=== PATIENT | female | born 1960 | race African-American/Black ===

== ENCOUNTER 2018-03-15 21:08 | Observation (INO) | payer OTHER, SELFPAY ==
[2018-03-15 21:42] LABS: #Basophils 0.1 thou/uL (0.0-0.2); #Eosinphils 0.1 thou/uL (0.0-0.7); #Lymphocytes 3.2 thou/uL (1.20-3.40); #Monocytes 0.6 thou/uL (0.11-0.59); #Neutrophils 4.4 thou/uL (1.40-6.50); %Basophils 1.1 % (0.0-1.0); %Eosinophils 0.8 % (0.0-10.0); %Lymphocytes 38.6 % (21.0-51.0); %Monocytes 6.6 % (0.0-10.0); Hemoglobin 15.5 g/dL (12.0-16.0); Mean Corpuscular HGB CONC 33.9 g/dL (32.0-36.0); Mean Corpuscular Hemoglobin 29.8 pg (27.0-31.0); Mean Corpuscular Volume 87.9 fL (78.0-98.0); Mean Platelet Volume 7.3 fL (7.4-10.4); Platelet Count 299 thou/uL (130-400); RBC Distribution Width 12.6 % (11.5-14.5); Red Blood Cell (RBC) Count 5.19 mill/uL (4.20-5.40); White Blood Cell (WBC) Count 8.4 thou/uL (4.8-10.8)
--- NOTE | 2018-03-15 21:59 | RAD ---
CHEST TWO VIEWS: 03/15/18 COMPARISON: 11/22/05. HISTORY: Pain. FINDINGS: Normal cardiac silhouette. Pulmonary vessels and pulmonary hilum are normal. Costophrenic angles are clear. No consolidation or mass. No pneumothorax or osseous abnormalities. Atherosclerosis of the aor ta is noted. IMPRESSION: 1. No acute cardiopulmonary process. 2. Atherosclerosis. POS: [facility]
[2018-03-15 22:00] LABS: ALT (SGPT) 24 U/L (8-55); AST (SGOT) 18 U/L (5-34); Albumin 4.3 g/dL (3.5-5.0); Alkaline Phosphatase 93 U/L (40-150); Anion Gap 14 mmol/L (10-20); BUN (Urea Nitrogen) 11 mg/dL (9.8-20.1); Bilirubin, Total 0.2 mg/dL (0.2-1.2); CK (CPK) 109 U/L (29-168); Calc. Creatinine Clearance 0 mL/min (70-130); Calcium 9.4 mg/dL (7.8-10.44); Carbon Dioxide 21 mmol/L (22-29); Chloride 105 mmol/L (98-107); Estimated GFR-MDRD 76; Globulin 3.3 g/dL (2.4-3.5); Glucose 138 mg/dL (70-105); Protein, Total 7.6 g/dL (6.0-8.3); Sodium 137 mmol/L (136-145)
[2018-03-15 22:05] LABS: CKMB 1.3 ng/mL (0-6.6); Troponin I Less than 0.010 ng/mL (< 0.028)
[2018-03-15] MEDS ORDERED: diphenhydrAMINE 50 MG/ML VIAL ONE (22:40)
[2018-03-15] MEDS ORDERED: Nitroglycerin 0.4 MG TAB (25 Tab Bottle) ONE (22:40)
[2018-03-15] MEDS ORDERED: Acetaminophen 500 MG TAB ONE (22:40)
[2018-03-15] MEDS ORDERED: Metoclopramide HCl 10 MG/2 ML VIAL ONE (22:40)
--- NOTE | 2018-03-15 23:37 | CT ---
NONCONTRAST HEAD CT 03/15/18 HISTORY: Pain. COMPARISON: 11/22/05. FINDINGS: No parenchymal hemorrhage. No extra-axial hematoma. No midline shift. Basilar cisterns are patent. Br ain volume, age appropriate. Cortical salazar-white matter differentiation is preserved. Ventricles and sulci are patent and symmetric. Stable hypodensity in the right weems radiata. Calvarium is intact. No significant opacification of the mastoid air cells or sinuses. There does appear to be partial opa cification of both external auditory canals, presumed to be due to cerumen. Direct visualization is r ecommended. IMPRESSION: 1. No acute intracranial process. 2. Cerumen in both external auditory canals. Direct visualization is recommended. POS: [facility]
[2018-03-16 01:05] LABS: Color Of CSF Supernatant COLORLESS (Colorless); Tube # 1; Unspun CSF Color COLORLESS (Colorless)
[2018-03-16 01:18] LABS: CSF, Glucose 86 mg/dl (40-70); CSF, Protein 32 mg/dL (15-40)
[2018-03-16 01:19] LABS: CSF Source CSF; Clarity Clear (Clear); RBC Count - Manual 0 /cumm (None Seen); Tube # 4
[2018-03-16 01:20] LABS: CSF Source CSF; Clarity Clear (Clear); RBC Count - Manual 0 /cumm (None Seen); Tube # 2; WBC/NonHematics Count - Manual 1 /cumm (0-5)
[2018-03-16] MEDS ORDERED: methylPREDNISolone Sod Succ/PF 125 MG/2 ML VIAL ONE (01:24)
[2018-03-16] MEDS ORDERED: Water For Inject, Bacteriostat 30 ML ONE (01:25)
[2018-03-16] MEDS ORDERED: Magnesium Sulfate 2 GM in Sodium Chloride 0.9% 100 ML IVPB SCH (01:45)
[2018-03-16 04:09] VITALS: BMI 32.3
[2018-03-16] MEDS ORDERED: Acetaminophen 325 MG TAB PO PRN (08:27)
[2018-03-16] MEDS ORDERED: Ondansetron HCl/PF 4 MG/2 ML Vial IVP PRN (08:27)
[2018-03-16] MEDS ORDERED: Ondansetron ODT 4 MG TAB SL PRN (08:27)
--- NOTE | 2018-03-16 09:06 | CT ---
PRELIMINARY REPORT/[facility]/EMERGENTY AFTER-HOURS PROCEDURE CT Angiography Head With Intravenous Contrast CT Angiography Neck With Intravenous Contrast EXAM DATE/TIME: 03/16/2018 1:02 AM CLINICAL HISTORY: 57 years old, female; Signs and symptoms; Headache; Patient HX: , F57 presents to ed C/O constant cp and BOURGEOIS that onset suddenly this evening at around 5/6pm. Pt states she was stressed about a family ma tter when her SX onset. No HX of heart disease. Pain is exacerbated by walking, palpation. Pt reports: Cough, chills, and SOB. Denies: Abd pain, n/v/d. Pt reports she is a smoker. P mhx of a stroke, represented with similar SX to what she is experiencing today. Stroke deficits inclu de l. Sided weakness. Pt states she takes a baby aspirin. TECHNIQUE: Axial computed tomographic angiography images of the head and neck with intravenous contrast using CT angiography protocol. MIP reconstructed images were created and reviewed. COMPARISON: No relevant prior studies available. FINDINGS: HEAD: Right anterior cerebral artery: Unremarkable. No occlusion or significant stenosis. No aneurysm. Right middle cerebral artery: Unremarkable. No occlusion or significant stenosis. No aneurysm. Right posterior cerebral artery: origin. No occlusion or significant stenosis. No aneurysm. Left anterior cerebral artery: Unremarkable. No occlusion or significant stenosis. No aneurysm. Left middle cerebral artery: Unremarkable. No occlusion or significant stenosis. No aneurysm. Left posterior cerebral artery: origin. No occlusion or significant stenosis. No aneurysm. Basilar artery: Congenitally hypoplastic. No occlusion or significant stenosis. No aneurysm. NECK: Right common carotid artery: Unremarkable. No significant stenosis. No dissection or occlusion. Right internal carotid artery: Unremarkable. No significant stenosis. No dissection or occlusion. Right external carotid artery: Unremarkable. No occlusion. Right vertebral artery: Unremarkable. No significant stenosis. No dissection or occlusion. Left common carotid artery: Unremarkable. No significant stenosis. No dissection or occlusion. Left internal carotid artery: Unremarkable. No significant stenosis. No dissection or occlusion. Left external carotid artery: Unremarkable. No occlusion. Left vertebral artery: Unremarkable. No significant stenosis. No dissection or occlusion. HEAD and NECK: Bones/joints: No acute fracture. No dislocation. Soft tissues: Unremarkable as visualized. No mass. Other findings: Enlarged thyroid gland, heterogeneous in appearance consistent with goiter. Moderate bilateral centrilobular emphysematous changes are present. CAROTID STENOSIS REFERENCE USING NASCET CRITERIA: % ICA stenosis = (1 - narrowest ICA diameter/diameter of distal cervical ICA) x 100. Mild - <50% stenosis. Moderate - 50-69% stenosis. Severe - 70-94% stenosis. Near occlusion - 95-99% stenosis. Occluded - 100% stenosis. IMPRESSION: No acute findings. Enlarged thyroid gland, heterogeneous in appearance consistent with goiter. Thank you for allowing us to participate in the care of your patient. Dictated and Authenticated by: Dee Bernard MD 03/16/2018 2:33 AM Central Time ([place] & [place]) FINAL REPORT CT ANGIOGRAM HEAD WITH CONTRAST CT ANGIOGRAM NECK WITH CONTRAST: HISTORY: Headache. Past history of a stroke. TECHNIQUE: A CT angiogram of the head and neck were performed after the intravenous administration of contrast. Three-rendering is provided. FINDINGS: There is moderate-grade stenosis of the right M1 branch with collateralization to the sylvian branche s. This is not reported in the preliminary report. The vertebral arteries are attenuated. The basilar artery is small. The posterior circulation does not appear to have a direct communication with the posterior cerebral arteries which are fed by the a nterior circulation. There is moderate emphysematous change of the lung apices. Numerous hypodensities of the thyroid are present. IMPRESSION: 1. Moderate-grade stenosis right M1 segment which may be chronic due to collateralization of the kyree vian fissure branches. There is mild diminution of the right M3 branches. 2. Small bilateral vertebral arteries with a lack of communication of the very small basilar artery with the posterior circulation. The posterior communicating arteries are fed by the anterior circula tion. 3. Multiple hypodensities of the thyroid for which ultrasound is recommended. Gisselle, a nurse taking care of the patient, was notified of the findings 8:24 a.m. CODE CR POS: [facility]
[2018-03-16] MEDS ORDERED: Dextrose 5% in Water 1,000 ML IV PRN (09:33)
[2018-03-16] MEDS ORDERED: Dextrose 50% Abboject 50 ML SYRINGE IVP PRN (09:33)
[2018-03-16] MEDS ORDERED: HumaLOG 300 UNITS/3 ML VIAL SC PRN ×2 (09:33)
[2018-03-16] MEDS: Potassium Chloride 20 MEQ TAB PO SCH ×3 (10:41→19:01)
[2018-03-16 11:13] LABS: Troponin I Less than 0.010 ng/mL (< 0.028)
[2018-03-16] MEDS ORDERED: Metoprolol Tartrate 25 MG TAB PO SCH (11:15)
[2018-03-16] MEDS ORDERED: ISOVUE-370 76%-LOCM 1 ML ONE (14:58)
[2018-03-16] MEDS: Acetaminophen 325 MG TAB PO PRN (16:24)
[2018-03-16] MEDS ORDERED: Diabetic Tussin 200 MG/10 ML UDCUP PO PRN (18:13)
[2018-03-16] MEDS ORDERED: Lisinopril 20 MG TAB PO SCH (18:15)
[2018-03-16] MEDS: Metoprolol Tartrate 25 MG TAB PO SCH (20:22)
--- NOTE | 2018-03-16 21:32 | ULT ---
THYROID ULTRASOUND: 03/16/18 HISTORY: Thyromegaly. COMPARISON: None. TECHNIQUE: Sagittal and transverse imaging of the thyroid gland is performed. FINDINGS: There is heterogeneity throughout the thyroid gland. Thyroid isthmus measures 0.7 cm. Right thyroid l obe measures 5.3 x 2.9 x 2.8 cm. Left thyroid lobe measures 2.1 x 1.9 x 5.1 cm. There are multiple complex cystic lesions as well as simple cystic lesions. The largest cystic lesion is in the lower pole of the right thyroid lobe measuring 1.1 x 1.6 x 1.3 cm. There is a solid lesion in the mid pole of the right thyroid lobe measuring 1.1 x 1.2 x 0.7 cm. There is a complex cystic le enzo in the upper pole of the right thyroid lobe measuring 1.1 x 1.1 x 0.9 cm. IMPRESSION: Complex solid and cystic lesions in the thyroid gland as well as a solid nodule in the right thyroid lobe. TI-RADS calculator score of TR3. Followup imaging in one year is recommended. POS: [facility]
--- NOTE | 2018-03-17 03:04 | CON ---
DATE OF CONSULTATION: 03/16/2018 REFERRING PROVIDER: Darrian Bruce M.D. REASON FOR CONSULTATION: Headache. HISTORY OF PRESENT ILLNESS: Mr. Balderas is a pleasant 57-year-old -[place] female who has be en consulted for evaluation of headache. The patient reports that she was stressed about a family ma tter prior to her symptom onset on yesterday, she suddenly started having headache that was holocrani ally, and this was sharp in quality and 9/10 in intensity. She continued to have headache throughout the day in the evening, then she started having chest pain, which prompted her to present to the [facility]. She reports that she has been having headache over the past 1 month on a janes ly basis. This headaches are also located her holocranially and they are throbbing in quality and mo derate in intensity. She states that with headache last night she was having some unusual sensation in the left side of her face as well as some weakness in her left lower extremity. She also complain ed of having blurred vision with dark floaters in both eyes as well as tinnitus in the right ear. Vicky carcamo notes that after she was given medications in the ER, headache has been much better today. She den ies any headache at this time. She denies nausea, vomiting, abdominal pain, fever, or chills. PAST MEDICAL HISTORY: Significant for hypertension, diabetes, history of stroke, hyperlipidemia. PAST SURGICAL HISTORY: Not significant. SOCIAL HISTORY: She drinks alcohol on social occasions. She also smokes cigarettes on a daily basis about 1 pack per day. She denies illicit drug use. CURRENT MEDICATIONS: Please review MAR. ALLERGIES: No known drug allergies. REVIEW OF SYSTEMS: As mentioned above in the HPI, otherwise negative. PHYSICAL EXAMINATION: VITAL SIGNS: Blood pressure of 182/71, pulse of 69, temperature of 98.4, respirations of 20, O2 sats ____ on room air. GENERAL: Well-developed, well-nourished -[place] female, in no apparent distress. RESPIRATORY: Clear to auscultation bilaterally. CARDIOVASCULAR: Regular rate and rhythm. NEUROLOGIC: Mental status: The patient is awake, alert, oriented x3. Speech and language: Fluent speech. Cranial nerves: Pupils are 3 mm and reactive. Visual moreno are intact. External muscles are intact. No nystagmus is noted. Face is symmetric. Tongue and uvula are midline. Motor exam sh owed normal tone and bulk with a 5/5 strength in both upper and lower extremities. Sensory: Sensati on is intact and symmetric. Deep tendon reflexes 2+ reflexes in both upper and lower extremities. B abinski: Plantar responses flexion bilaterally. Coordination intact to [id number] and finge r tapping bilaterally. LABORATORY DATA: Reviewed, which included CBC, CMP and CSF studies, which is significant for potassi um of 3.0, glucose of 286. CSF WBC of 1, RBC of 0, glucose of 86 and protein of 32. Gram stain and cultures are negative. IMAGING STUDIES: CT head without contrast was reviewed, which showed no acute intracranial abnormali ty. CT angiogram of the head and neck were reviewed, which showed no acute intracranial vascular abn ormality and no extracranial vascular abnormality. IMPRESSION: 1. Malignant hypertension. 2. Intractable headache, likely due to malignant hypertension. Mr. Balderas is a pleasant 57-year-old -[place] female who presented with acute onset of heada samra. Based on the ____ headache, this is likely a tension headache. This could also be secondary to malignant hypertension as her blood pressure was noted to be significantly elevated. At this time, I would recommend treating headache with the Tylenol or tramadol as needed. I would recommend contro lling her blood pressure with a goal of 120-140/80. No further neurological workup needed from [facility]. Thank you for consultation.
[2018-03-17] MEDS: Acetaminophen 325 MG TAB PO PRN (04:24)
[2018-03-17 04:52] LABS: Anion Gap 10 mmol/L (10-20); BUN (Urea Nitrogen) 9 mg/dL (9.8-20.1); Calc. Creatinine Clearance 96 mL/min (70-130); Calcium 9.5 mg/dL (7.8-10.44); Carbon Dioxide 26 mmol/L (22-29); Chloride 107 mmol/L (98-107); Estimated GFR-MDRD 85; Glucose 128 mg/dL (70-105); Potassium 4.1 mmol/L (3.5-5.1); Sodium 139 mmol/L (136-145)
[2018-03-17 04:55] LABS: Hemoglobin A1c 6.6 % (4.0-6.0)
[2018-03-17 07:56] VITALS: TEMP 98
--- NOTE | 2018-03-17 08:05 | HP ---
DATE OF ADMISSION: 03/16/2018 CHIEF COMPLAINT: Chest pain and headache. HISTORY OF PRESENT ILLNESS: Ms. Balderas is a 57-year-old female with past medical history of diabetes, hypertension, noncompliant with medication, came because of pain in the chest, it is sharp in nature, not associated with diaphoresis, and no shortness of breath. No nausea, vomiting. She also has headache, which got worse. She has history of migraine headaches. The patient has come to the hospital because of chest pain and headache, feels like she is having a stroke. In the ER, the patient was evaluated and found to have elevated blood pressure, and enlarged thyroid on the CT. The patient is being admitted for further management for her headache and also rule out UT. PAST MEDICAL HISTORY: 1. Hypertension. 2. Diabetes mellitus. 3. Hyperlipidemia. Patient is not taking any medications right now. She has been off meds for a few months. SURGICAL HISTORY: Nothing significant. CURRENT MEDICATIONS: None. ALLERGIES: No known drug allergies. FAMILY HISTORY: Nothing of interest. SOCIAL HISTORY: Patient smokes 1 pack a day, has been smoking for many years. No history of alcohol intake. REVIEW OF SYSTEMS: Unremarkable except for sharp pain in the chest and headache. PHYSICAL EXAMINATION: GENERAL: The patient is alert, awake, oriented x3. VITAL SIGNS: Temperature 98, pulse 56, respiration 20, blood pressure 175/80. HEENT: Head is normocephalic, atraumatic. Pupils equal and reactive. Mucose pink and moist. NECK: Supple. No JVD. LUNGS: Bilateral air entry present. No rales. No rhonchi. CARDIAC: S1, S2 regular. ABDOMEN: Soft, no distention, no tenderness. Normal bowel sounds. CHEST: Chest wall tender, sore, tender on the left side. LABORATORY AND X-RAY FINDINGS: CBC shows WBC 8.4, hemoglobin 15, hematocrit 45 , platelets 299. Metabolic panel: Sodium 137, potassium 3, chloride 105, CO2 of 21, urea nitrogen 11, creatinine 0.9, glucose 138. CK-MB 1.3. Troponin less than 0.010. Chest x-ray negative. CT scan of the brain negative. CT scan of the upper [place]. Angio showed no evidence of carotid stenosis, showed enlarged thyroid. EKG showed sinus tachycardia, no acute ST-T wave changes seen. ASSESSMENT: 1. Chest pain, atypical, rule out myocardial infarction. 2. Chest wall pain. 3. Migraine headaches. 4. Hypertension, uncontrolled. 5. Diabetes, uncontrolled, noncompliant. 6. Hypokalemia. 7. Enlarged thyroid. PLAN: 1. Vital signs q.4 hours. 2. Activity: As tolerated. 3. Allergies: NKDA. 4. Diet: Cardiac. 5. Metoprolol 25 b.i.d. 6. Accu-Chek a.c. and at bedtime, sliding scale mild, regular insulin. 7. Lisinopril 20 daily. 8. Neurologic consult. 9. KCl replacement. 10. Ultrasound of the thyroid. MTDD
[2018-03-17] MEDS ORDERED: Lisinopril 20 MG TAB PO SCH (09:00)
[2018-03-17] MEDS: Metoprolol Tartrate 25 MG TAB PO SCH (09:20)
[2018-03-17 09:21] VITALS: BP 179/109
--- NOTE | 2018-03-18 13:57 | DIS ---
ADMITTING DIAGNOSES: 1. Chest pain, atypical, rule out myocardial infarction. 2. Chest wall pain. 3. Migraine headaches. 4. Hypertension, uncontrolled. 5. Diabetes mellitus, uncontrolled. 6. Patient is noncompliant. 7. Hypokalemia. 8. Enlarged thyroid. FINAL DIAGNOSES: 1. Chest pain, atypical. No evidence of acute myocardial infarction. 2. Chest pain, improved. 3. Migraine headaches. 4. Hypertension, uncontrolled, improved. 5. Diabetes mellitus, uncontrolled. 6. Noncompliant. 7. Hypokalemia, corrected. 8. Thyroid goiter and also thyroid nodule on the right side, also complex cystic lesions in the thyr oid. BRIEF SUMMARY OF HOSPITAL COURSE: Ms. Balderas is a 57-year-old female admitted [facility] use of chest wall chest pain, and migraine headaches. The patient has atypical chest pain with sharp pain in the chest and chest wall was tender. Serial troponin I was done and serial troponin was nor mal. The patient's chest wall pain resolved with pain medication. The patient also had migraine hea daches. She was given Tylenol p.r.n. She was also found to have incidentally enlarged thyroid. Ult rasound of the thyroid was done that showed solid and cystic complex lesions present as well as a thy roid nodule on the right side. Advised 1 year followup with a thyroid ultrasound. Thyroid function was done. T4 was normal. TSH was normal. Her blood pressure was uncontrolled, but she was restarte d on her home medications and she is doing much better. Her sugar also came down. So in view of imp rovement, the patient is being discharged home. At the time of discharge, she was stable. Her vital signs were stable. Lungs clear. Heart sounds regular. Abdomen was soft, nontender. Bowel sounds present. DISCHARGE MEDICATIONS: 1. Lisinopril 20 mg daily. 2. Metoprolol 25 mg b.i.d. 3. Also she will start on metformin after 2 days 500 mg 2 daily. FOLLOWUP: The patient will come for followup in 2 weeks.
--- NOTE | 2018-03-19 11:37 | EKG ---
Test Reason : Blood Pressure : / mmHG Vent. Rate : 114 BPM Atrial Rate : 114 BPM P-R Int : 138 ms QRS Dur : 090 ms QT Int : 362 ms P-R-T Axes : 040 056 -27 degrees QTc Int : 498 ms Sinus tachycardia Abnormal ECG Confirmed by KINZA SCOTT DO ([id number]), assignment editor HEAVEN MAHARAJ ([id number]) on 03/19/2018 11:36:40 AM Referred By: Confirmed By:KINZA SCOTT DO
== END 2018-03-17 10:05 | disposition home or self-care (01) ==
LOC: ERS 21:08 → 2SE 03-16 01:01
PROVIDERS: ADMIT Internal Medicine; ATTEND Internal Medicine
DX: R07.89 Other chest pain (principal); I10 Essential (primary) hypertension; G43.909 Migraine, unspecified, not intractable, without status migrainosus; E11.9 Type 2 diabetes mellitus without complications; E87.6 Hypokalemia; E04.9 Nontoxic goiter, unspecified; E78.5 Hyperlipidemia, unspecified; F17.210 Nicotine dependence, cigarettes, uncomplicated; Z91.14 Patient's other noncompliance with medication regimen
CPT/HCPCS: 36415; 36416; 62270; 70450; 70496; 70498; 71046; 76536; 80048; 80053; 82553; 82945; 83036; 84157; 84439; 84484; 85025; 85379; 87070; 87205; 89051; 90471; 90732; 93005; 96365; 96366; 96367; 96375; G0009; G0378; J1200; J2765; J2930; J3475; J7050; Q0162

== ENCOUNTER 2019-07-22 18:57 | Observation (INO) | payer SELFPAY ==
[2019-07-22 19:56] LABS: #Basophils 0.1 thou/uL (0.0-0.2); #Eosinphils 0.1 thou/uL (0.0-0.7); #Lymphocytes 4.2 thou/uL (1.20-3.40); #Monocytes 0.6 thou/uL (0.11-0.59); #Neutrophils 6.3 thou/uL (1.40-6.50); %Basophils 0.7 % (0.0-1.0); %Eosinophils 0.7 % (0.0-10.0); %Lymphocytes 37.2 % (21.0-51.0); %Monocytes 5.3 % (0.0-10.0); %Neutrophils 56.1 % (42.0-75.0); Hemoglobin 14.4 g/dL (12.0-16.0); Mean Corpuscular HGB CONC 33.7 g/dL (32.0-36.0); Mean Corpuscular Hemoglobin 29.5 pg (27.0-31.0); Mean Corpuscular Volume 87.4 fL (78.0-98.0); Platelet Count 310 thou/uL (130-400); RBC Distribution Width 12.4 % (11.5-14.5); Red Blood Cell (RBC) Count 4.88 mill/uL (4.20-5.40); White Blood Cell (WBC) Count 11.2 thou/uL (4.8-10.8)
[2019-07-22 20:15] LABS: ALT (SGPT) 13 U/L (8-55); AST (SGOT) 15 U/L (5-34); Albumin 4.5 g/dL (3.5-5.0); Alkaline Phosphatase 113 U/L (40-110); Anion Gap 13 mmol/L (10-20); BUN (Urea Nitrogen) 9 mg/dL (9.8-20.1); Bilirubin, Total 0.2 mg/dL (0.2-1.2); Calc. Creatinine Clearance 0 mL/min (70-130); Calcium 10.2 mg/dL (7.8-10.44); Carbon Dioxide 24 mmol/L (22-29); Chloride 104 mmol/L (98-107); Estimated GFR-MDRD 70; Globulin 3.5 g/dL (2.4-3.5); Glucose 117 mg/dL (70-105); Potassium 3.2 mmol/L (3.5-5.1); Sodium 138 mmol/L (136-145)
--- NOTE | 2019-07-22 20:48 | CT ---
CT BRAIN NONCONTRAST: DATE: 07/22/2019 HISTORY: 58-year-old female with frontal headache and vertigo. COMPARISON: 03/15/2018 FINDINGS: There is no evidence of acute intra-axial or extra-axial hemorrhage. There is no midline shift or any other mass effect. There is no extra-axial fluid collection. There is no evidence of obstructive hydrocephalus. Calvarium is intact. There is a tiny old lacunar infarction in the right periventricul ar white matter just lateral to the body of the right lateral ventricle. There is no interval change overall. Frontal sinuses and sphenoid sinus are clear. IMPRESSION: 1. No acute intracranial findings. 2. Tiny old lacunar infarction right cerebral deep white matter.
[2019-07-22] MEDS ORDERED: Meclizine HCl 25 MG TAB PO PRN (22:08)
[2019-07-22] MEDS ORDERED: Senokot S 8.6-50 MG TAB PO PRN (22:08)
[2019-07-22] MEDS ORDERED: Guaifenesin DM 100-10/5 ML UDCUP PO PRN (22:08)
[2019-07-22] MEDS ORDERED: Dextrose 5% in Water 1,000 ML IV PRN (22:08)
[2019-07-22] MEDS ORDERED: Dextrose 50% Abboject 50 ML SYRINGE SLOW IVP PRN (22:08)
[2019-07-22] MEDS ORDERED: Bisacodyl 10 MG SUPP PR PRN (22:08)
[2019-07-22] MEDS ORDERED: HumaLOG 300 UNITS/3 ML VIAL SC PRN ×2 (22:08)
[2019-07-22] MEDS ORDERED: Ondansetron PF 4 MG/2 ML Vial IVP PRN (22:08)
[2019-07-22] MEDS ORDERED: Acetaminophen 325 MG TAB PO PRN (22:08)
[2019-07-22] MEDS ORDERED: Aspirin Chewable 81 MG TAB ONE (22:12)
[2019-07-22] MEDS ORDERED: Potassium Chloride 20 MEQ TAB ONE (22:12)
[2019-07-22 23:41] VITALS: BMI 31.5
[2019-07-23] MEDS: Sodium Chloride 0.9% 1,000 ML IV SCH ×2 (00:33→14:53)
[2019-07-23 04:13] LABS: #Basophils 0.1 thou/uL (0.0-0.2); #Eosinphils 0.1 thou/uL (0.0-0.7); #Lymphocytes 3.8 thou/uL (1.20-3.40); #Monocytes 0.6 thou/uL (0.11-0.59); #Neutrophils 4.3 thou/uL (1.40-6.50); %Basophils 0.7 % (0.0-1.0); %Eosinophils 1.1 % (0.0-10.0); %Lymphocytes 42.6 % (21.0-51.0); %Neutrophils 48.6 % (42.0-75.0); Hemoglobin 11.8 g/dL (12.0-16.0); Mean Corpuscular HGB CONC 32.6 g/dL (32.0-36.0); Mean Corpuscular Hemoglobin 28.3 pg (27.0-31.0); Mean Corpuscular Volume 86.8 fL (78.0-98.0); Mean Platelet Volume 7.9 fL (7.4-10.4); Platelet Count 259 thou/uL (130-400); RBC Distribution Width 12.2 % (11.5-14.5); Red Blood Cell (RBC) Count 4.17 mill/uL (4.20-5.40); White Blood Cell (WBC) Count 8.9 thou/uL (4.8-10.8)
[2019-07-23 04:35] LABS: Anion Gap 9 mmol/L (10-20); BUN (Urea Nitrogen) 14 mg/dL (9.8-20.1); Calc. Creatinine Clearance 92 mL/min (70-130); Calcium 9.4 mg/dL (7.8-10.44); Carbon Dioxide 27 mmol/L (22-29); Cardiac Risk 5.2 (Less than 4.5); Chloride 107 mmol/L (98-107); Cholesterol 237 mg/dl (< 200 Desired); Estimated GFR-MDRD 84; Glucose 162 mg/dL (70-105); HDL Cholesterol 46 mg/dL (>60 Neg Risk); LDL Cholesterol, Calculated 154 mg/dL; Sodium 139 mmol/L (136-145); Triglycerides 187 mg/dL (Less than 150)
--- NOTE | 2019-07-23 05:14 | HP ---
REASON FOR ADMISSION: TIA. HISTORY OF PRESENT ILLNESS: The patient gives history of having dizzy spells nearly 3 of them. She normally has mild dizziness, but this was worse than before. She developed headache mostly in the frontal area. Her tongue started to tingle a little bit. The patient also had some left facial tingling and drooping per patient. This was worse when she was trying to concentrate and look up stuff. She also mentions that she has bilateral lower extremity weakness, especially when she tries to ambulate more. Has no specific weakness on any side as such, either left or right. Prior history of facial palsy in 2008 which got completely resolved. No fever. PAST MEDICAL AND SURGICAL HISTORY: Diabetes mellitus type 2, history of CVA with facial palsy completely resolved in 2008, dyslipidemia, hypertension, history of dizziness in the past, dyslipidemia. CURRENT MEDICATIONS: 1. Meclizine p.r.n. 2. Lopressor 25 mg p.o. twice daily. 3. Norvasc 10 mg daily. 4. Metformin 850 mg daily, likely extended release, which she is unsure. 5. She also takes a statin, which she is not sure. ALLERGIES: NO KNOWN DRUG ALLERGIES. PERSONAL HISTORY: Smokes 1 pack a day. Does not abuse alcohol or drugs. She lives with her daughter. She works 4 hours a day. FAMILY HISTORY: Mother in her 50s, she had history of stroke when she was on dialysis. Father in his 60s, he had history of coronary artery disease. CODE STATUS: Full. Power of associate attorney is three children. REVIEW OF SYSTEMS: CONSTITUTIONAL: Negative for weight loss or gain, ability to conduct usual activities. SKIN: Negative for rash, itching. EYES: Negative for double vision, pain. ENT/MOUTH: Negative for nose bleeding, neck stiffness, pain, tenderness. CARDIOVASCULAR: Negative for palpitations, dyspnea on exertion, orthopnea. RESPIRATORY: Negative for shortness of breath, wheezing, cough, hemoptysis, fever or night sweats. GASTROINTESTINAL: Negative for poor appetite, abdominal pain, heartburn, nausea , vomiting, constipation, or diarrhea. GENITOURINARY: Negative for urgency, frequency, dysuria, nocturia. MUSCULOSKELETAL: Negative for pain, swelling. NEUROLOGIC/PSYCHIATRIC: Negative for anxiety, depression. ALLERGY/IMMUNOLOGIC: Negative for skin rash, bleeding tendency. PHYSICAL EXAMINATION: GENERAL: The patient is a 58-year-old female, who is currently not in any acute distress. VITAL SIGNS: Blood pressure 140/70, pulse 94 per minute, respiratory rate 18 per minute, temperature 98.7 degrees Fahrenheit, and saturating 97% on room air. NECK: Supple. No elevated JVD. HEENT: Eyes; extraocular muscles intact. Pupils reacting to light. Oral cavity, mucous membranes are moist. No exudates or congestion. CARDIOVASCULAR: S1, S2 heard, regular rhythm. RESPIRATORY: Air entry 1+ bilateral. Scattered rhonchi plus no rales or wheezes. ABDOMEN: Soft. Bowel sounds heard. No tenderness, rigidity, or guarding. EXTREMITIES: No peripheral edema or calf tenderness. VASCULAR: Peripheral pulses 1+ bilateral. No ischemic ulcerations or gangrene. CENTRAL NERVOUS SYSTEM: The patient has flattening of right nasolabial fold. Otherwise, strength is 5/5 in all 4 extremities. No other gross cranial nerve deficits noted. PSYCHIATRIC: The patient's mood is euthymic. No hallucinations or delusions. LABORATORY DATA: Tiny old lacunar infarct in the right cerebral deep white matter. No acute intracranial findings. Electrolytes; potassium is 3.2, BUN 9, creatinine 0.9, serum glucose 117, albumin is 4.5. White count of 11, H and H 14 and 42, platelet count 310, with 56% neutrophils. EKG done shows normal sinus rhythm at 88 beats per minute. There are T-wave inversions seen in likely II, III, and aVF. CLINICAL IMPRESSION AND PLAN: The patient will be on observation on the stroke unit for headache, tingling of her tongue and left half of her face with dizzy spells , which is worse than before per patient. In view of these symptoms, we will obtain an MRI of the brain to definitively rule out cerebrovascular accident. Echo with 2D Doppler for LV function in view of EKG changes. The patient has history of migraine and takes usually Tylenol at home. We will continue her on aspirin, metformin at 500 mg twice daily, meclizine p.r.n., lopressor home dose, and add Crestor 20 mg p.o. nightly. She will be on normal saline at 60 mL/h for a total of 1 L. We will follow stroke evidence based TIA protocol. Neurology consultation with Dr. Denise Hughes will be requested. Job ID: [id number] [facility]
--- NOTE | 2019-07-23 08:40 | ULT ---
DOPPLER ARTERIAL EVALUATION OF BOTH LOWER EXTREMITIES: INDICATION: Peripheral vascular disease and claudication. FINDINGS: Right lower extremity: There is a biphasic waveform within the right common femoral artery and profunda femoral artery with elevation of the velocity to 170 cm/s at the level of the right common femoral artery consistent with moderate atherosclerotic narrowing. High-grade stenosis is seen involving the proximal right sup erficial femoral artery with a peak systolic velocity of 196 cm/s. Biphasic waveform is seen distal to this in the mid right SFA. There is monophasic antegrade waveforms seen from the distal right SFA through the level of the right foreleg vasculature. There is high-grade stenosis involving the left common femoral artery with a peak systolic velocity o f 245 cm/s. Monophasic waveforms are seen distal to this from the left SFA through the level of the foreleg vasculature. IMPRESSION: Hemodynamically significant stenosis involving the left common femoral artery and proximal right supe rficial femoral artery. Recommend further evaluation with a CTA of the abdomen and pelvis with bilateral lower extremity runoff. Transcribed Date/Time: 07/23/2019 9:14 AM
[2019-07-23] MEDS ORDERED: Metoprolol Tartrate 25 MG TAB PO SCH (09:00)
[2019-07-23] MEDS ORDERED: Famotidine 20 MG TAB PO SCH (09:00)
[2019-07-23] MEDS ORDERED: Enoxaparin Sodium 40 MG/0.4 ML SYRINGE SC SCH (09:00)
[2019-07-23] MEDS ORDERED: Aspirin 81 mg Enteric Coated Tablet PO SCH (09:00)
[2019-07-23] MEDS: metFORMIN 500 MG TAB PO SCH ×2 (09:21→16:23)
[2019-07-23] MEDS ORDERED: Lorazepam 1 MG TAB PO SCH ×2 (09:45→10:45)
--- NOTE | 2019-07-23 12:17 | CON ---
DATE OF TELEMEDICINE CONSULTATION: 07-22-19 CHIEF COMPLAINT: Dizziness. HISTORY OF PRESENT ILLNESS: The patient reports she has had a dizzy spell with headache. She did not report any type of weakness, but says she has had similar events in the past and she has complained of numbness as well through the body and no falls are reported. She lives with her granddaughter and she stated that she has had some weakness of the face, to her primary admitting physician and she also reports bilateral lower extremity weakness. PREVIOUS MEDICAL HISTORY: Facial palsy in the past, diabetes history of CVA with resolution in 2008. Dyslipidemia. Hypertension. Dizziness in the past. MEDICATION: She takes; 1. Meclizine. 2. Lopressor 25 mg. 3. Norvasc. 4. Metformin. ALLERGIES: NO KNOWN DRUG ALLERGIES. FAMILY HISTORY: Mother in her 50s and she had a stroke. There are total of eight siblings, only three are remaining, two sisters from end-stage renal disease. One sister is on hemodialysis. Father in his 60s from coronary artery disease. REVIEW OF SYSTEMS: PULMONARY: Negative for cough or shortness of breath. GI: Negative for nausea, vomiting, or diarrhea. CARDIAC: Negative for chest pain or palpitations. DERMATOLOGIC: Negative for skin rash. HEMATOLOGIC: Negative for bleeding diathesis or anemia. ENDOCRINE: Positive for diabetes. ENT: Negative. LABORATORY DATA: Her current workup as noted in the chart; white count is 8.9, hemoglobin 11.8, hematocrit 36.2, platelet count 259. Chemistry; sodium 139, potassium 4, chloride 107, bicarb 27, BUN 14, creatinine 0.84. Triglycerides 187, cholesterol 237, LDL 154, HDL 46. Urinalysis not available and she had a CT of the head, which did not show any acute intracranial event. She has pending MRI. She does have a tiny old CT in the right deep cerebral white matter. PHYSICAL EXAMINATION: VITAL SIGNS: Temperature 97, pulse 79, respiratory rate 20, O2 sats 97, blood pressure 137/64. GENERAL APPEARANCE: Well-built, well-nourished lady who seems comfortable in bed. CHEST: Clear vesicular breathing. CARDIOVASCULAR: S1, S2 heard. No murmurs. ABDOMEN: Soft. NEUROLOGIC: Higher intellectual functions. Normal orientation to time, place, and person. She had a flat affect and would not make much eye contact during conversations. Her cranial nerve examination, extraocular movements, the patient cannot follow the finger, but can look to the sides spontaneously by herself. Pupils 2 mm reactive to light. Sensation of the face is decreased on the left side and no facial asymmetry noted. Normal hearing to finger rub bilaterally. Normal elevation of palate. Tongue midline. Motor exam; bulk normal. Tone normal. Strength 5/5 throughout in upper extremities and it came to lower extremities, she was able to elevate both her legs against gravity but not against resistance, so grade is 3/5 and dorsiflexion was 4/5, plantar flexion 4/5. Deep tendon reflexes show she had hyperreflexia bilaterally in upper and lower extremities at 3+. Sensory decreased sensation to touch on face, arm, and leg on the left side and cerebellar was normal [id number] and [id number]. IMPRESSION AND RECOMMENDATIONS: The patient is a 58-year-old lady with diabetes and hypertension and good risk factors for stroke including family history of stroke and the prior stroke. Her current examination shows bilateral leg weakness. There might be some decreased effort, which we are unable to assess, but she also has sensory symptoms on the left side. At this time, they would like to await on the MRI scan to see if she had an acute event. She will also need evaluation for peripheral neuropathy as outpatient. She might have some muscle disease or underlying neuropathy at baseline, this needs to be further investigated. Job ID: [id number] [facility]
--- NOTE | 2019-07-23 12:48 | MRI ---
MRI BRAIN WITHOUT CONTRAST: INDICATION: TIA. FINDINGS: Ventricles have normal size and position. There is no evidence for restricted diffusion. No evidenc e of acute infarct. No evidence of mass or edema. Mild scattered white matter hyperintensities are seen consistent with mild chronic ischemic white mat ter change. Intracranial internal carotid arteries and proximal cerebral arteries show flow voids. The right M1 segment is not seen peripherally. See CTA head. IMPRESSION: 1. No evidence of acute infarct. 2. Mild chronic ischemic white matter change. POS: OFF
--- NOTE | 2019-07-23 13:07 | CT ---
CTA HEAD WITH AND WITHOUT CONTRAST: Multiple axial tomograms were obtained through the head without IV contrast. This was followed by CT A head following angio protocol with multiplanar reconstruction and 3D post processing. COMPARISON: Comparison is made to CT head without contrast performed 07/22/2019. FINDINGS: Tiny focus of hypodensity in the periventricular white matter on the right is unchanged. This is con sistent with an old lacunar infarct. There is no evidence of cortical infarct, mass, or hemorrhage. No interval change. CTA HEAD: Intracranial internal carotid arteries are patent. Mild atherosclerotic calcifications seen in the c avernous carotids bilaterally. There is severe narrowing and near occlusion in the mid M1 segment on the right. Left M1 segment appears patent. M2 and M3 branches on the right are decreased. The basilar artery is small. connection with both posterior cerebral arteries. The P1 segment s appear symmetric and patent. The left P2 segment is very atretic. IMPRESSION: 1. Severe stenosis and near occlusion of the mid right M1 segment. Decrease in the right M2 and M3 branches. 2. Possible stenosis of the P2 segment on the left. POS: OFF
--- NOTE | 2019-07-23 13:20 | CT ---
CTA NECK: Axial tomograms were obtained with multiplanar reconstruction and 3D post processing. INDICATION: TIA. Question CVA. FINDINGS: No evidence of stenosis at the origin of the arch vessels. Both common carotids are patent with no significant stenosis. There is atherosclerotic calcification seen in both bulbs and both proximal ICAs; however, there is n o evidence of hemodynamically significant stenosis in either proximal ICA by NASCET criteria. There is mild stenosis bilaterally which is less than 50% diameter. Both vertebral arteries are small but are patent and symmetric. Small atretic basilar artery is agai n noted. Soft tissues show multinodular enlarged thyroid. Recommend clinical correlation and thyroid evaluati on as indicated. IMPRESSION: 1. Atherosclerotic changes at both bulbs and proximal internal carotid arteries producing mild bilat eral internal carotid artery stenosis. 2. Enlarged multinodular thyroid. POS: OFF
[2019-07-23] MEDS ORDERED: Iopamidol-370 76% 500 ML 1 ML ONE (13:28)
[2019-07-23] MEDS ORDERED: Clopidogrel Bisulfate 300 MG TAB PO SCH (15:30)
[2019-07-23 16:02] VITALS: TEMP 98
--- NOTE | 2019-07-23 16:15 | DIS ---
DATE OF ADMISSION: 07/22/2019 DATE OF DISCHARGE: 07/23/2019 PRIMARY CARE PROVIDER: Darrian Bruce MD DISPOSITION: Discharged home. FINAL DIAGNOSES: 1. Transient ischemic attack, resolved. 2. Hypertension. 3. Type 2 diabetes. 4. Dyslipidemia. DISCHARGE MEDICATIONS: Are her home medicines plus; 1. Plavix 75 mg a day. 2. Meclizine 25 mg p.o. b.i.d. p.r.n. 3. Metoprolol 25 mg a day. 4. Amlodipine 10 mg a day. 5. Plavix 75 mg a day. 6. Aspirin 81 mg a day. 7. Lipitor 10 mg po daily ALLERGIES: NONE. PENDING AT TIME OF DISCHARGE: Nothing. CODE STATUS: Full. DIET: Diabetic. HOSPITAL COURSE: [facility] with dizziness, tingling tongue, some weakness. CT scan done in the ER was unremarkable. A Neurology consult was obtained with Dr. Denise Hughes. Her neurological exam is nonfocal. MRI revealed no stroke. CT angiography revealed intact internal carotid arteries and multinodular goiter. CT [place] reveals severe stenosis of the mid right M1 segment and decrease in the M2 and M3 segments of right middle cerebral artery. The basilar artery was small with connections of both posterior cerebral arteries. She is being given 300 mg of Plavix today. I have discussed the findings with her. She is comfortable with going home. Plavix 75 mg daily has been added. She has been asked to see Dr. Bruce in 1 week for followup. In addition, consideration may be given to the multinodular goiter as an outpatient. Job ID: [id number] [facility]
[2019-07-23] MEDS ORDERED: Rosuvastatin 20 MG TAB PO SCH (21:00)
[2019-07-23 23:30] VITALS: BP 130/55
[2019-07-24] MEDS ORDERED: Clopidogrel Bisulfate 75 MG TAB PO SCH (09:00)
== END 2019-07-23 16:43 | disposition home or self-care (01) ==
LOC: ERS 18:57 → 2SW 23:33 → 2SE 07-23 08:41
PROVIDERS: ADMIT Internal Medicine; ATTEND Internal Medicine
DX: I65.23 Occlusion and stenosis of bilateral carotid arteries (principal); I10 Essential (primary) hypertension; E11.9 Type 2 diabetes mellitus without complications; E78.5 Hyperlipidemia, unspecified; F17.210 Nicotine dependence, cigarettes, uncomplicated; I25.2 Old myocardial infarction; I70.213 Atherosclerosis of native arteries of extremities with intermittent claudication, bilateral legs; E04.2 Nontoxic multinodular goiter; Z86.73 Personal history of transient ischemic attack (TIA), and cerebral infarction without residual deficits; Z79.84 Long term (current) use of oral hypoglycemic drugs; Z79.899 Other long term (current) drug therapy
CPT/HCPCS: 36415; 36416; 70450; 70496; 70498; 70551; 80048; 80053; 80061; 85025; 93005; 93306; 93923; 96372; G0378; J1650; Q9967

== ENCOUNTER 2021-08-19 00:05 | Emergency (ER) | payer OTHER, SELFPAY ==
[2021-08-19 00:44] LABS: #Monocytes 0.7 thou/uL (0.11-0.59); #Neutrophils 6.2 thou/uL (1.40-6.50); %Basophils 0.3 % (0.0-1.0); %Eosinophils 0.4 % (0.0-10.0); %Lymphocytes 12.3 % (21.0-51.0); %Monocytes 9.2 % (0.0-10.0); %Neutrophils 77.8 % (42.0-75.0); Hemoglobin 14.1 g/dL (12.0-16.0); Mean Corpuscular HGB CONC 33.6 g/dL (32.0-36.0); Mean Corpuscular Hemoglobin 29.7 pg (27.0-31.0); Mean Corpuscular Volume 88.6 fL (78.0-98.0); Mean Platelet Volume 7.9 fL (7.4-10.4); Platelet Count 247 thou/uL (130-400); RBC Distribution Width 11.9 % (11.5-14.5); Red Blood Cell (RBC) Count 4.75 mill/uL (4.20-5.40)
[2021-08-19 01:07] LABS: ALT (SGPT) 30 U/L (8-55); AST (SGOT) 43 U/L (5-34); Albumin 3.8 g/dL (3.4-4.8); Alkaline Phosphatase 79 U/L (40-110); Anion Gap 12 mmol/L (10-20); BUN (Urea Nitrogen) 12 mg/dL (9.8-20.1); Bilirubin, Total 0.3 mg/dL (0.2-1.2); Calc. Creatinine Clearance 0 mL/min (70-130); Calcium 9.5 mg/dL (7.8-10.44); Carbon Dioxide 23 mmol/L (23-31); Chloride 105 mmol/L (98-107); Globulin 3.7 g/dL (2.4-3.5); Glucose 114 mg/dL (80-115); Potassium 3.6 mmol/L (3.5-5.1); Protein, Total 7.5 g/dL (5.8-8.1); Sodium 136 mmol/L (136-145)
[2021-08-19] MEDS ORDERED: Ibuprofen 200 MG TAB ONE (03:09)
[2021-08-19 13:16] LABS: SARS-CoV-2 PCR by NAA DETECTED (NotDetected)
== END 2021-08-19 04:10 | disposition home or self-care (01) ==
LOC: ERS 00:05
DX: U07.1 COVID-19 (principal); I10 Essential (primary) hypertension; E11.9 Type 2 diabetes mellitus without complications; E78.5 Hyperlipidemia, unspecified; F17.210 Nicotine dependence, cigarettes, uncomplicated; Z79.899 Other long term (current) drug therapy
CPT/HCPCS: 36415; 71045; 80053; 84484; 85025; 87804; 93005; U0003; U0005

== ENCOUNTER 2021-09-23 13:16 | Emergency (ER) | payer SELFPAY ==
[2021-09-23] MEDS ORDERED: Carbamide Peroxide 6.5% Otic Drops 15 ml Bottle ONE (15:49)
[2021-09-23] MEDS ORDERED: Ketorolac Tromethamine 30 MG/ML VIAL ONE (17:00)
== END 2021-09-23 17:04 | disposition home or self-care (01) ==
LOC: ERS 13:16
DX: H61.21 Impacted cerumen, right ear (principal); Z79.899 Other long term (current) drug therapy; E11.9 Type 2 diabetes mellitus without complications; E78.00 Pure hypercholesterolemia, unspecified; I10 Essential (primary) hypertension; F17.210 Nicotine dependence, cigarettes, uncomplicated
CPT/HCPCS: 69209; 96372; J1885

== ENCOUNTER 2022-06-02 09:10 | Emergency (ER) | payer SELFPAY ==
[2022-06-02 09:57] LABS: #Basophils 0.1 thou/uL (0.0-0.2); #Eosinphils 0.1 thou/uL (0.0-0.7); #Monocytes 0.9 thou/uL (0.11-0.59); #Neutrophils 6.5 thou/uL (1.40-6.50); %Basophils 0.5 % (0.0-1.0); %Eosinophils 0.6 % (0.0-10.0); %Lymphocytes 21.2 % (21.0-51.0); %Monocytes 9.4 % (0.0-10.0); %Neutrophils 68.3 % (42.0-75.0); Hemoglobin 13.2 g/dL (12.0-16.0); Mean Corpuscular HGB CONC 32.5 g/dL (32.0-36.0); Mean Corpuscular Hemoglobin 29.6 pg (27.0-31.0); Mean Corpuscular Volume 91.1 fL (78.0-98.0); Mean Platelet Volume 8.1 fL (7.4-10.4); Platelet Count 355 thou/uL (130-400); RBC Distribution Width 11.9 % (11.5-14.5); Red Blood Cell (RBC) Count 4.45 mill/uL (4.20-5.40); White Blood Cell (WBC) Count 9.5 thou/uL (4.8-10.8)
[2022-06-02 10:05] LABS: ALT (SGPT) 11 U/L (8-55); AST (SGOT) 13 U/L (5-34); Albumin 3.8 g/dL (3.4-4.8); Alkaline Phosphatase 84 U/L (40-110); Anion Gap 14 mmol/L (10-20); BUN (Urea Nitrogen) 9 mg/dL (9.8-20.1); Bilirubin, Total 0.2 mg/dL (0.2-1.2); Calc. Creatinine Clearance 0 mL/min (70-130); Calcium 9.6 mg/dL (7.8-10.44); Carbon Dioxide 22 mmol/L (23-31); Chloride 104 mmol/L (98-107); Estimated GFR 57; Glucose 167 mg/dL (80-115); Potassium 3.3 mmol/L (3.5-5.1); Protein, Total 7.8 g/dL (5.8-8.1); Sodium 137 mmol/L (136-145)
[2022-06-02] MEDS ORDERED: Acetaminophen 500 MG TAB ONE (10:22)
== END 2022-06-02 11:00 | disposition home or self-care (01) ==
LOC: ERS 09:10
DX: J20.9 Acute bronchitis, unspecified (principal); E11.9 Type 2 diabetes mellitus without complications; I10 Essential (primary) hypertension; E78.00 Pure hypercholesterolemia, unspecified; F17.210 Nicotine dependence, cigarettes, uncomplicated; Z79.899 Other long term (current) drug therapy
CPT/HCPCS: 36415; 71045; 80053; 84484; 85025; 93005

== ENCOUNTER 2022-06-04 17:00 | Inpatient (IN) | payer SELFPAY ==
[~2022-06-04 17:00] MED LIST: Iopamidol-370 76% 500 ML 1 ML ONE
[2022-06-04 17:40] LABS: Bacteria/HPF 2+ HPF (None Seen); Bilirubin Negative (Negative); Blood, Urine Negative (Negative); Clarity Turbid (Clear); Glucose, Urine (Dipstick) Normal (Negative); Ketone, Urine Negative (Negative); Leukocyte 250 Leu/uL (Negative); Nitrite Negative (Negative); Protein, Urine (Dipstick) 200 mg/dL (Neg-Trace); RBC/HPF 0-3 HPF (0-3); Specific Gravity, Urine 1.009 (1.002-1.036); Urobilinogen Normal mg/dL (Less than 2); pH, Urine 6.5 (5.0-9.0)
[2022-06-04 17:42] LABS: #Eosinphils 0.1 thou/uL (0.0-0.7); #Lymphocytes 2.6 thou/uL (1.20-3.40); #Monocytes 0.6 thou/uL (0.11-0.59); #Neutrophils 7.6 thou/uL (1.40-6.50); %Basophils 0.2 % (0.0-1.0); %Eosinophils 0.5 % (0.0-10.0); %Lymphocytes 24.1 % (21.0-51.0); %Monocytes 5.6 % (0.0-10.0); %Neutrophils 69.6 % (42.0-75.0); Mean Corpuscular HGB CONC 32.8 g/dL (32.0-36.0); Mean Corpuscular Volume 91.4 fL (78.0-98.0); Mean Platelet Volume 7.5 fL (7.4-10.4); Platelet Count 437 thou/uL (130-400); Red Blood Cell (RBC) Count 4.66 mill/uL (4.20-5.40)
[2022-06-04 17:59] LABS: ALT (SGPT) 14 U/L (8-55); AST (SGOT) 18 U/L (5-34); Albumin 4.1 g/dL (3.4-4.8); Alkaline Phosphatase 89 U/L (40-110); Anion Gap 14 mmol/L (10-20); BUN (Urea Nitrogen) 9 mg/dL (9.8-20.1); Bilirubin, Total 0.2 mg/dL (0.2-1.2); Calc. Creatinine Clearance 0 mL/min (70-130); Calcium 10.2 mg/dL (7.8-10.44); Carbon Dioxide 27 mmol/L (23-31); Chloride 103 mmol/L (98-107); Estimated GFR 59; Globulin 4.3 g/dL (2.4-3.5); Glucose 103 mg/dL (80-115); Lipase 30 U/L (8-78); Potassium 3.8 mmol/L (3.5-5.1); Protein, Total 8.4 g/dL (5.8-8.1); Sodium 140 mmol/L (136-145)
[2022-06-04] MEDS ORDERED: Aspirin Chewable 81 MG TAB ONE (18:45)
[2022-06-04] MEDS ORDERED: Nitroglycerin 2% Ointment 1 INCH/1 GM Packet ONE (18:45)
[2022-06-04 22:30] LABS: SARS-CoV-2 NAA Rapid Test Not Detected (NotDetected)
[2022-06-04 22:32] LABS: Troponin I Less than 0.010 ng/mL (< 0.028)
[2022-06-04] MEDS ORDERED: Nitroglycerin 0.4 MG TAB (25 Tab Bottle) SL PRN (22:37)
[2022-06-04] MEDS ORDERED: Ondansetron ODT 4 MG TAB PO PRN (22:37)
[2022-06-04] MEDS ORDERED: Ondansetron PF 4 MG/2 ML Vial IVP PRN (22:37)
[2022-06-04] MEDS ORDERED: Acetaminophen 650 MG Suppository PR PRN (22:37)
[2022-06-04] MEDS ORDERED: Morphine 4 MG/ML VIAL SLOW IVP PRN (22:40)
[2022-06-05 00:37] VITALS: BMI 30.7
[2022-06-05] MEDS ORDERED: HumaLOG 300 UNITS/3 ML VIAL SC PRN ×2 (01:40)
[2022-06-05] MEDS ORDERED: Dextrose 5% in Water 1,000 ML IV PRN (01:40)
[2022-06-05] MEDS ORDERED: Dextrose 50% Abboject 50 ML SYRINGE SLOW IVP PRN (01:40)
[2022-06-05 01:41] LABS: Troponin I 0.018 ng/mL (< 0.028)
[2022-06-05 05:11] LABS: Hemoglobin A1c 6.3 % (4.0-6.0)
[2022-06-05 05:14] LABS: Anion Gap 12 mmol/L (10-20); BUN (Urea Nitrogen) 10 mg/dL (9.8-20.1); Calc. Creatinine Clearance 76 mL/min (70-130); Calcium 9.8 mg/dL (7.8-10.44); Carbon Dioxide 26 mmol/L (23-31); Cardiac Risk 4.7 (Less than 4.5); Chloride 105 mmol/L (98-107); Cholesterol 180 mg/dl (< 200 Desired); Estimated GFR 68; Glucose 107 mg/dL (80-115); HDL Cholesterol 38 mg/dL (>60 Neg Risk); LDL Cholesterol, Calculated 116 mg/dL; Potassium 3.4 mmol/L (3.5-5.1); Sodium 140 mmol/L (136-145); Triglycerides 128 mg/dL (Less than 150)
[2022-06-05 05:16] LABS: #Basophils 0.1 thou/uL (0.0-0.2); #Eosinphils 0.1 thou/uL (0.0-0.7); #Lymphocytes 3.3 thou/uL (1.20-3.40); #Monocytes 0.7 thou/uL (0.11-0.59); #Neutrophils 4.6 thou/uL (1.40-6.50); %Basophils 0.7 % (0.0-1.0); %Eosinophils 1.4 % (0.0-10.0); %Lymphocytes 37.5 % (21.0-51.0); %Neutrophils 52.4 % (42.0-75.0); Hemoglobin 12.8 g/dL (12.0-16.0); Mean Corpuscular HGB CONC 32.7 g/dL (32.0-36.0); Mean Corpuscular Volume 91.5 fL (78.0-98.0); Platelet Count 402 thou/uL (130-400); RBC Distribution Width 11.9 % (11.5-14.5); Red Blood Cell (RBC) Count 4.27 mill/uL (4.20-5.40); White Blood Cell (WBC) Count 8.8 thou/uL (4.8-10.8)
[2022-06-05] MEDS: Amlodipine 10 MG TAB PO SCH ×2 (09:56→10:07)
[2022-06-05] MEDS: Aspirin 81 mg Enteric Coated Tablet PO SCH (09:56)
[2022-06-05] MEDS: Aspirin Chewable 81 MG TAB PO SCH (09:57)
[2022-06-05] MEDS: Enoxaparin Sodium 40 MG/0.4 ML SYRINGE SC SCH (09:57)
[2022-06-05] MEDS: Atorvastatin Calcium 10 MG TAB PO SCH (09:57)
[2022-06-05] MEDS: Clopidogrel Bisulfate 75 MG TAB PO SCH (09:57)
[2022-06-06] MEDS: Acetaminophen 325 MG TAB PO PRN ×2 (04:35→14:39)
[2022-06-06] MEDS: Clopidogrel Bisulfate 75 MG TAB PO SCH (07:26)
[2022-06-06] MEDS: Atorvastatin Calcium 10 MG TAB PO SCH (07:26)
[2022-06-06] MEDS: Aspirin 81 mg Enteric Coated Tablet PO SCH (07:26)
[2022-06-06] MEDS: Amlodipine 10 MG TAB PO SCH (07:26)
[2022-06-06] MEDS: Aspirin Chewable 81 MG TAB PO SCH (07:27)
[2022-06-06] MEDS: Enoxaparin Sodium 40 MG/0.4 ML SYRINGE SC SCH (07:27)
[2022-06-06] MEDS: hydrALAZINE 20 MG/ML VIAL SLOW IVP PRN ×2 (07:27→14:38)
[2022-06-06] MEDS ORDERED: ADENOSINE 60 MG/20 ML VIAL ONE (09:18)
[2022-06-06] MEDS ORDERED: Metoprolol Tartrate 25 MG TAB PO SCH (17:00)
[2022-06-07] MEDS: Acetaminophen 325 MG TAB PO PRN (04:00)
[2022-06-07 08:12] VITALS: BP 169/72; TEMP 97.1
[2022-06-07] MEDS: Amlodipine 10 MG TAB PO SCH (08:57)
[2022-06-07] MEDS: Clopidogrel Bisulfate 75 MG TAB PO SCH (08:57)
[2022-06-07] MEDS: Aspirin Chewable 81 MG TAB PO SCH (08:57)
[2022-06-07] MEDS: Atorvastatin Calcium 10 MG TAB PO SCH (08:57)
[2022-06-07] MEDS: Aspirin 81 mg Enteric Coated Tablet PO SCH (08:58)
[2022-06-07] MEDS: Enoxaparin Sodium 40 MG/0.4 ML SYRINGE SC SCH (08:58)
[2022-06-07] MEDS ORDERED: Metoprolol Tartrate 25 MG TAB PO SCH (09:00)
[2022-06-08] MEDS ORDERED: FLU VACC QS2022-23(6MOS UP)/PF 60 MCG/0.5 ML SYRINGE IM ONE (09:00)
== END 2022-06-07 10:15 | disposition home or self-care (01) | DRG 305 ==
LOC: ERS 17:00 → ERHOLD 21:08 → 2NO 06-05 00:15 → OBSVTOIN 06-05 16:00
PROVIDERS: ADMIT Internal Medicine; ATTEND Internal Medicine
DX: I16.0 Hypertensive urgency (principal); R10.13 Epigastric pain; I10 Essential (primary) hypertension; E11.9 Type 2 diabetes mellitus without complications; D35.02 Benign neoplasm of left adrenal gland; Z20.822 Contact with and (suspected) exposure to COVID-19; E78.5 Hyperlipidemia, unspecified; F17.210 Nicotine dependence, cigarettes, uncomplicated; Z86.73 Personal history of transient ischemic attack (TIA), and cerebral infarction without residual deficits; Z79.899 Other long term (current) drug therapy; Z79.82 Long term (current) use of aspirin; Z79.02 Long term (current) use of antithrombotics/antiplatelets
CPT/HCPCS: 36415; 36416; 70450; 71045; 71275; 74177; 74178; 78452; 80048; 80053; 80061; 81003; 81015; 83036; 83690; 84484; 85025; 85379; 93005; 93017; 94760; 96372; 96374; A9500; G0378; J0153; J0360; J1650; J1815; J2270; Q9967; U0002

== ENCOUNTER 2023-06-04 11:13 | Observation (INO) | payer OTHER, SELFPAY ==
[2023-06-04] MEDS ORDERED: Nitroglycerin 0.4 MG TAB 1 EACH ONE (11:32)
[2023-06-04 11:51] LABS: #Eosinphils 0.1 thou/uL (0.0-0.7); #Monocytes 0.6 thou/uL (0.11-0.59); #Neutrophils 4.4 thou/uL (1.40-6.50); %Basophils 0.5 % (0.0-1.0); %Eosinophils 1.1 % (0.0-10.0); %Lymphocytes 31.6 % (21.0-51.0); %Monocytes 7.4 % (0.0-10.0); %Neutrophils 59.1 % (42.0-75.0); Hematocrit 40.4 % (36.0-47.0); Hemoglobin 13.2 g/dL (12.0-16.0); Mean Corpuscular HGB CONC 32.7 g/dL (32.0-36.0); Mean Corpuscular Hemoglobin 29.3 pg (27.0-31.0); Mean Corpuscular Volume 89.6 fl (78.0-98.0); Mean Platelet Volume 10.2 fL (7.4-10.4); Platelet Count 323 10x3/uL (130-400); RBC Distribution Width 13.2 % (11.5-14.5); Red Blood Cell (RBC) Count 4.51 mill/uL (4.20-5.40); White Blood Cell (WBC) Count 7.5 10x3/uL (4.8-10.8)
[2023-06-04 12:15] LABS: ALT (SGPT) 12 U/L (8-55); AST (SGOT) 16 U/L (5-34); Albumin 4.3 g/dL (3.4-4.8); Alkaline Phosphatase 107 U/L (40-110); Anion Gap 14 mmol/L (10-20); BUN (Urea Nitrogen) 11 mg/dL (9.8-20.1); Bilirubin, Total 0.3 mg/dL (0.2-1.2); Calc. Creatinine Clearance 0 mL/min (70-130); Calcium 9.8 mg/dL (7.8-10.44); Carbon Dioxide 23 mmol/L (23-31); Chloride 105 mmol/L (98-107); Estimated GFR 52; Glucose 130 mg/dL (80-115); Potassium 4.3 mmol/L (3.5-5.1); Protein, Total 7.3 g/dL (5.8-8.1); Sodium 138 mmol/L (136-145)
[2023-06-04 12:19] LABS: Troponin I 0.014 ng/mL (< 0.028)
[2023-06-04] MEDS ORDERED: Ondansetron PF 4 MG/2 ML Vial IVP PRN (13:56)
[2023-06-04] MEDS ORDERED: Ondansetron ODT 4 MG TAB PO PRN (13:56)
[2023-06-04 14:35] LABS: Troponin I Less than 0.010 ng/mL (< 0.028)
[2023-06-04 15:36] VITALS: BMI 31.8
[2023-06-04] MEDS: Nicotine 14 MG PATCH TD SCH (15:39)
[2023-06-04] MEDS ORDERED: Meclizine HCl 25 MG TAB PO PRN (17:07)
[2023-06-04 17:49] LABS: Troponin I Less than 0.010 ng/mL (< 0.028)
[2023-06-04] MEDS ORDERED: Dextrose 5% in Water 1,000 ML IV PRN (17:54)
[2023-06-04] MEDS ORDERED: Dextrose 50% Abboject 50 ML SYRINGE SLOW IVP PRN (17:54)
[2023-06-04] MEDS ORDERED: HumaLOG 300 UNITS/3 ML VIAL SC PRN ×2 (17:54)
[2023-06-04] MEDS ORDERED: Glucagon 1 MG/ML KIT IM PRN (17:54)
[2023-06-04 18:45] LABS: Hemoglobin A1c 6.6 % (4.0-6.0)
[2023-06-04 19:29] LABS: Magnesium 2.1 mg/dL (1.6-2.6)
[2023-06-04] MEDS: Metoprolol Tartrate 25 MG TAB PO SCH (20:44)
[2023-06-04] MEDS: Acetaminophen 325 MG TAB PO PRN (20:44)
[2023-06-05 04:57] LABS: #Eosinphils 0.1 thou/uL (0.0-0.7); #Monocytes 0.6 thou/uL (0.11-0.59); #Neutrophils 3.3 thou/uL (1.40-6.50); %Basophils 0.6 % (0.0-1.0); %Eosinophils 1.8 % (0.0-10.0); %Lymphocytes 39.5 % (21.0-51.0); %Monocytes 8.8 % (0.0-10.0); %Neutrophils 49.2 % (42.0-75.0); Hematocrit 37.9 % (36.0-47.0); Hemoglobin 12.4 g/dL (12.0-16.0); Mean Corpuscular HGB CONC 32.7 g/dL (32.0-36.0); Mean Corpuscular Volume 88.8 fl (78.0-98.0); Mean Platelet Volume 10.4 fL (7.4-10.4); Platelet Count 310 10x3/uL (130-400); RBC Distribution Width 13.3 % (11.5-14.5); Red Blood Cell (RBC) Count 4.27 mill/uL (4.20-5.40); White Blood Cell (WBC) Count 6.8 10x3/uL (4.8-10.8)
[2023-06-05 05:21] LABS: Anion Gap 12 mmol/L (10-20); BUN (Urea Nitrogen) 17 mg/dL (9.8-20.1); Calc. Creatinine Clearance 59 mL/min (70-130); Calcium 9.1 mg/dL (7.8-10.44); Carbon Dioxide 24 mmol/L (23-31); Chloride 108 mmol/L (98-107); Estimated GFR 48; Glucose 135 mg/dL (80-115); Potassium 3.7 mmol/L (3.5-5.1); Sodium 140 mmol/L (136-145)
[2023-06-05] MEDS: Metoprolol Tartrate 25 MG TAB PO SCH ×2 (08:13→12:42)
[2023-06-05] MEDS ORDERED: Aspirin 81 mg Enteric Coated Tablet PO SCH (09:00)
[2023-06-05] MEDS ORDERED: Clopidogrel Bisulfate 75 MG TAB PO SCH (09:00)
[2023-06-05] MEDS ORDERED: Aspirin Chewable 81 MG TAB PO SCH (09:00)
[2023-06-05] MEDS ORDERED: Atorvastatin Calcium 10 MG TAB PO SCH (09:00)
[2023-06-05] MEDS ORDERED: Amlodipine 10 MG TAB PO SCH (09:00)
[2023-06-05] MEDS ORDERED: Regadenoson 0.4 MG/5 ML SYRINGE ONE (11:29)
[2023-06-05] MEDS: Acetaminophen 325 MG TAB PO PRN (12:42)
[2023-06-05] MEDS: Nicotine 14 MG PATCH TD SCH (12:46)
[2023-06-05 13:00] VITALS: BP 179/76; TEMP 97.5
== END 2023-06-05 15:00 | disposition home or self-care (01) ==
LOC: ERS 11:13 → 2SW 13:57
PROVIDERS: ADMIT Family Medicine; ATTEND Nurse Practitioner Family
DX: R07.9 Chest pain, unspecified (principal); E11.9 Type 2 diabetes mellitus without complications; I10 Essential (primary) hypertension; E78.5 Hyperlipidemia, unspecified; F17.210 Nicotine dependence, cigarettes, uncomplicated; F32.A Depression, unspecified; F41.9 Anxiety disorder, unspecified; Z79.82 Long term (current) use of aspirin; Z79.899 Other long term (current) drug therapy
CPT/HCPCS: 36415; 36416; 71045; 78452; 80048; 80053; 83036; 83735; 84443; 84484; 85025; 93005; 93017; 93306; A9500; G0378; J2785